=== PATIENT | male | born 1975 | race Caucasian/White ===

== ENCOUNTER 2019-05-07 17:22 | Inpatient (IN) | payer OTHER ==
[2019-05-07] MEDS ORDERED: MULTIVITAMINS, THERA 1 EACH TAB PO STA (18:13)
[2019-05-07] MEDS ORDERED: SODIUM CHLORIDE 0.9% 1,000 ML IV STA (18:13)
[2019-05-07] MEDS ORDERED: FOLIC ACID 1 MG TAB PO STA (18:13)
[2019-05-07] MEDS ORDERED: THIAMINE 100 MG/ML 2 ML VIAL IM STA (18:13)
[2019-05-07] MEDS ORDERED: LORazepam 2 MG/ML INJ IV PRN ×2 (18:13)
[2019-05-07] MEDS ORDERED: ASPIRIN 81 MG PO STA (18:14)
[2019-05-07 19:05] LABS: Anisocytosis Slight; Basophils # (A) 0.1 k/uL (0-0.2); Basophils % (A) 1 %; Eosinophils # (A) 0.2 k/uL (0-0.7); Eosinophils % (A) 3 %; HCT 38.9 % (39.0-53.0); HGB 13.3 gm/dL (13.0-17.5); Lymphocytes % (A) 14 %; MCH 32.1 pg (25.0-35.0); MCHC 34.1 g/dL (31.0-37.0); Mean Platelet Volume 7.2; Monocytes # (A) 0.5 k/uL (0-1.0); Monocytes % (A) 7 %; Neutrophils % (A) 73 %; Platelet Count 187 k/uL (150-450); RBC 4.14 m/uL (4.30-5.90); RDW 16.1 % (11.5-15.5); WBC 6.9 k/uL (3.8-10.6)
[2019-05-07 19:15] LABS: ALT 46 U/L (21-72); AST 74 U/L (17-59); African American GFR (CKD) >90 (>60 ml/min/1.73 sqM); Albumin 4.1 g/dL (3.5-5.0); Blood Urea Nitrogen 7 mg/dL (9-20); Glucose 110 mg/dL (74-99); Potassium 3.8 mmol/L (3.5-5.1); Total Protein 6.4 g/dL (6.3-8.2)
[2019-05-07 19:18] LABS: INR 0.9 (<1.2); Partial Thromboplastin Time 24.9 sec (22.0-30.0); Prothrombin Time 9.7 sec (9.0-12.0)
[2019-05-07 19:27] LABS: Alkaline Phosphatase 60 U/L (38-126); Anion Gap 13 mmol/L; Calcium 8.3 mg/dL (8.4-10.2); Carbon Dioxide 22 mmol/L (22-30); Chloride 104 mmol/L (98-107); Magnesium 1.8 mg/dL (1.6-2.3); Sodium 139 mmol/L (137-145); Total Bilirubin 0.4 mg/dL (0.2-1.3)
[2019-05-07 19:35] LABS: Alcohol 175 mg/dL
--- NOTE | 2019-05-07 20:25 | ED ---
Alcohol HPI - General Chief Complaint: Alcohol Stated Complaint: alcohol detox Time Seen by Provider: 05/07/19 17:30 Source: patient Mode of arrival: EMS Limitations: no limitations - History of Present Illness Initial Comments: The patient is a 43-year-old male with past history of alcohol abuse who presents to the emergency room and from [place]. The patient states he went in there today to detox from alcohol. He has been through detox multiple times. States he has suffered from withdrawal seizures before as well as DTs. The patient normally drinks a 15 pack of beer per day as well as a pint of alcohol. States that his last drink was earlier today. He then stated that he made the decision to going to [place]. While he was there is alcohol was noted to be in the 130s per the patient. He does have a breathalyzer at home and states he is normally in the 300s. He felt tremulous and started complaining of chest pain. Because of this they did transfer him to the hospital for further evaluation the patient states he has had chest pain before in the past. He is supposed to be having a stress test however states it's been difficult as he cannot remain sober. He denies any associated shortness of breath. Does admit to diaphoresis and nausea. No vomiting. Denies a history of cardiac disease. He has never had a stress test or cath before. Patient does report a history of smoking and high blood pressure. He denies ripping or tearing sensation to his back. No history of DVTs or PEs. No calf pain or swelling. No pedal edema. Denies use of any illicit drugs. No suicidal or homicidal ideations. There are no other alleviating, precipitating or modifying factors - Related Data Home Medications Medication Instructions Recorded Confirmed Acetaminophen [Tylenol] 1,000 mg PO DAILY 05/07/19 05/07/19 Labetalol [Trandate] 100 mg PO BID 05/07/19 05/07/19 Lisinopril [Prinivil] 10 mg PO DAILY 05/07/19 05/07/19 QUEtiapine FUMARATE [SEROquel] 300 mg PO DAILY 05/07/19 05/07/19 Simvastatin 10 mg PO DAILY 05/07/19 05/07/19 Previous Rx's Medication Instructions Recorded Folic Acid 1 mg PO DAILY #30 tablet 05/09/19 Multivitamins, Thera [Multivitamin 1 tab PO DAILY #30 tablet 05/09/19 (formulary)] Thiamine [Vitamin B-1] 100 mg PO DAILY #30 tablet 05/09/19 Allergies Allergy/AdvReac Type Severity Reaction Status Date / Time No Known Allergies Allergy Verified 05/07/19 17:35 Review of Systems ROS Statement: Those systems with pertinent positive or pertinent negative responses have been documented in the HPI. ROS Other: All systems not noted in ROS Statement are negative. Past Medical History Past Medical History: Hyperlipidemia, Hypertension History of Any Multi-Drug Resistant Organisms: None Reported Additional Past Surgical History / Comment(s): Neck sx 2014 Past Psychological History: Depression Smoking Status: Current every day smoker Past Alcohol Use History: Abuse, Heavy Past Drug Use History: None Reported General Exam Limitations: no limitations General appearance: alert, appears intoxicated Head exam: Present: atraumatic, normocephalic, normal inspection Eye exam: Present: normal appearance, PERRL, EOMI. Absent: scleral icterus, conjunctival injection, periorbital swelling ENT exam: Present: normal exam, mucous membranes moist Neck exam: Present: normal inspection. Absent: tenderness, meningismus, lymphadenopathy Respiratory exam: Present: normal lung sounds bilaterally. Absent: respiratory distress, wheezes, rales, rhonchi, stridor Cardiovascular Exam: Present: regular rate, normal rhythm, normal heart sounds. Absent: systolic murmur, diastolic murmur, rubs, gallop, clicks GI/Abdominal exam: Present: soft, normal bowel sounds. Absent: distended, tenderness, guarding, rebound, rigid Extremities exam: Present: normal inspection, full ROM, normal capillary refill. Absent: tenderness, pedal edema, joint swelling, calf tenderness Back exam: Present: normal inspection Neurological exam: Present: alert, oriented X3, CN II-XII intact Psychiatric exam: Present: normal affect, normal mood Skin exam: Present: warm, intact, normal color, diaphoretic. Absent: rash Course Vital Signs 05/07/19 05/07/19 05/07/19 17:28 17:30 18:00 Temperature 98.7 F Pulse Rate 82 85 93 Respiratory 16 22 16 Rate Blood Pressure 122/80 122/80 119/76 O2 Sat by Pulse 90 L 88 L 96 Oximetry 05/07/19 05/07/19 05/07/19 18:30 19:00 19:30 Temperature Pulse Rate 69 64 Respiratory 18 17 Rate Blood Pressure 115/83 118/73 116/84 O2 Sat by Pulse 98 99 Oximetry 05/07/19 05/07/19 20:03 21:34 Temperature 98.0 F Pulse Rate 68 72 Respiratory 18 18 Rate Blood Pressure 114/70 113/68 O2 Sat by Pulse 98 98 Oximetry Medical Decision Making - Medical Decision Making Upon arrival the patient is placed into room 24. He is hooked up to continuous pulse ox and cardiac monitoring. The patient is placed on oxygen as he does desat to the high 80s when asleep. He did complete a 12-lead EKG which demonstrates no acute ST segment elevation. Peripheral IV is established. I do place the patient on CIWA protocol. He is a started on the 100 mL of fluid per hour. Laboratory studies are conducted the patient is sent for chest x-ray. First troponin is negative. The patient does have an alcohol level of 175. Because the patient's reported chest pain or did recommend admission to the hospital in order to continue to trend the patient's troponins. Patient did agree to this. As he does not have a physician I did call discuss case with Dr. Naik who did accept admission for the patient. He requested I place cardiology on consult. The patient did receive a chewable aspirin. He remained in stable condition and was transported to the floor - Lab Data Result diagrams: 05/08/19 06:45 05/08/19 06:45 Lab Results 05/07/19 05/07/19 05/07/19 Range/Units 18:53 18:53 18:53 WBC 6.9 (3.8-10.6) k/uL RBC 4.14 L (4.30-5.90) m/uL Hgb 13.3 (13.0-17.5) gm/dL Hct 38.9 L (39.0-53.0) % MCV 94.0 (80.0-100.0) fL MCH 32.1 (25.0-35.0) pg MCHC 34.1 (31.0-37.0) g/dL RDW 16.1 H (11.5-15.5) % Plt Count 187 (150-450) k/uL Neutrophils % 73 % Lymphocytes % 14 % Monocytes % 7 % Eosinophils % 3 % Basophils % 1 % Neutrophils # 5.0 (1.3-7.7) k/uL Lymphocytes # 1.0 (1.0-4.8) k/uL Monocytes # 0.5 (0-1.0) k/uL Eosinophils # 0.2 (0-0.7) k/uL Basophils # 0.1 (0-0.2) k/uL Anisocytosis Slight PT 9.7 (9.0-12.0) sec INR 0.9 (<1.2) APTT 24.9 (22.0-30.0) sec Sodium 139 (137-145) mmol/L Potassium 3.8 (3.5-5.1) mmol/L Chloride 104 (98-107) mmol/L Carbon Dioxide 22 (22-30) mmol/L Anion Gap 13 mmol/L BUN 7 L (9-20) mg/dL Creatinine 0.66 (0.66-1.25) mg/dL Est GFR (CKD-EPI)AfAm >90 (>60 ml/min/1.73 sqM) Est GFR (CKD-EPI)NonAf >90 (>60 ml/min/1.73 sqM) Glucose 110 H (74-99) mg/dL Calcium 8.3 L (8.4-10.2) mg/dL Magnesium 1.8 (1.6-2.3) mg/dL Total Bilirubin 0.4 (0.2-1.3) mg/dL AST 74 H (17-59) U/L ALT 46 (21-72) U/L Alkaline Phosphatase 60 (38-126) U/L Troponin I (0.000-0.034) ng/mL Total Protein 6.4 (6.3-8.2) g/dL Albumin 4.1 (3.5-5.0) g/dL Serum Alcohol 175 mg/dL 05/07/19 05/08/19 05/08/19 Range/Units 18:53 01:17 06:45 WBC 7.4 (3.8-10.6) k/uL RBC 4.20 L (4.30-5.90) m/uL Hgb 13.1 (13.0-17.5) gm/dL Hct 39.5 (39.0-53.0) % MCV 94.1 (80.0-100.0) fL MCH 31.3 (25.0-35.0) pg MCHC 33.3 (31.0-37.0) g/dL RDW 15.5 (11.5-15.5) % Plt Count 171 (150-450) k/uL Neutrophils % 75 % Lymphocytes % 14 % Monocytes % 5 % Eosinophils % 3 % Basophils % 1 % Neutrophils # 5.6 (1.3-7.7) k/uL Lymphocytes # 1.0 (1.0-4.8) k/uL Monocytes # 0.4 (0-1.0) k/uL Eosinophils # 0.2 (0-0.7) k/uL Basophils # 0.1 (0-0.2) k/uL Anisocytosis PT (9.0-12.0) sec INR (<1.2) APTT (22.0-30.0) sec Sodium (137-145) mmol/L Potassium (3.5-5.1) mmol/L Chloride (98-107) mmol/L Carbon Dioxide (22-30) mmol/L Anion Gap mmol/L BUN (9-20) mg/dL Creatinine (0.66-1.25) mg/dL Est GFR (CKD-EPI)AfAm (>60 ml/min/1.73 sqM) Est GFR (CKD-EPI)NonAf (>60 ml/min/1.73 sqM) Glucose (74-99) mg/dL Calcium (8.4-10.2) mg/dL Magnesium (1.6-2.3) mg/dL Total Bilirubin (0.2-1.3) mg/dL AST (17-59) U/L ALT (21-72) U/L Alkaline Phosphatase (38-126) U/L Troponin I <0.012 <0.012 (0.000-0.034) ng/mL Total Protein (6.3-8.2) g/dL Albumin (3.5-5.0) g/dL Serum Alcohol mg/dL 05/08/19 05/08/19 Range/Units 06:45 06:45 WBC (3.8-10.6) k/uL RBC (4.30-5.90) m/uL Hgb (13.0-17.5) gm/dL Hct (39.0-53.0) % MCV (80.0-100.0) fL MCH (25.0-35.0) pg MCHC (31.0-37.0) g/dL RDW (11.5-15.5) % Plt Count (150-450) k/uL Neutrophils % % Lymphocytes % % Monocytes % % Eosinophils % % Basophils % % Neutrophils # (1.3-7.7) k/uL Lymphocytes # (1.0-4.8) k/uL Monocytes # (0-1.0) k/uL Eosinophils # (0-0.7) k/uL Basophils # (0-0.2) k/uL Anisocytosis PT (9.0-12.0) sec INR (<1.2) APTT (22.0-30.0) sec Sodium 139 (137-145) mmol/L Potassium 4.3 (3.5-5.1) mmol/L Chloride 104 (98-107) mmol/L Carbon Dioxide 25 (22-30) mmol/L Anion Gap 10 mmol/L BUN 9 (9-20) mg/dL Creatinine 0.77 (0.66-1.25) mg/dL Est GFR (CKD-EPI)AfAm >90 (>60 ml/min/1.73 sqM) Est GFR (CKD-EPI)NonAf >90 (>60 ml/min/1.73 sqM) Glucose 73 L (74-99) mg/dL Calcium 9.0 (8.4-10.2) mg/dL Magnesium (1.6-2.3) mg/dL Total Bilirubin (0.2-1.3) mg/dL AST (17-59) U/L ALT (21-72) U/L Alkaline Phosphatase (38-126) U/L Troponin I <0.012 (0.000-0.034) ng/mL Total Protein (6.3-8.2) g/dL Albumin (3.5-5.0) g/dL Serum Alcohol mg/dL - EKG Data EKG Comments: EKG demonstrates a normal sinus rhythm with a ventricular rate of 74. MN interval 176. QRS 80. QTC 437. No acute ST segment elevations. Disposition Clinical Impression: Chest pain, Alcohol intoxication Disposition: ADMITTED IP TO THIS HOSP Condition: Stable Is patient prescribed a controlled substance at d/c from ED?: No Decision to Admit Reason: Admit from EC Decision Date: 05/07/19 Decision Time: 20:55
--- NOTE | 2019-05-07 20:42 | XR ---
EXAMINATION: XR chest 3V DATE AND TIME: 05/07/2019 7:29 PM CLINICAL INDICATION: PHH; Chest Pain TECHNIQUE: 2 frontal radiographs and one lateral radiograph COMPARISON: None FINDINGS: There is evidence of pectus excavatum, congenital variant anatomy. The lungs are clear. The pleural spaces are negative. The cardiac silhouette is not enlarged. The remainder of the mediastinal silhouette is unremarkable. The skeletal structures and soft tissues are negative for acute findings. IMPRESSION: NO ACUTE PROCESS.
[2019-05-07] MEDS ORDERED: NALOXONE 0.4 MG/ML 1 ML VIAL IV PRN (20:56)
[2019-05-07] MEDS: LACTATED RINGERS 1,000 ML IV SCH (21:42)
[2019-05-08] MEDS: LORazepam 2 MG/ML INJ IV PRN ×8 (01:11→23:46)
[2019-05-08] MEDS: LACTATED RINGERS 1,000 ML IV SCH ×2 (06:33→17:45)
[2019-05-08 06:55] LABS: Basophils # (A) 0.1 k/uL (0-0.2); Basophils % (A) 1 %; Eosinophils # (A) 0.2 k/uL (0-0.7); Eosinophils % (A) 3 %; HCT 39.5 % (39.0-53.0); HGB 13.1 gm/dL (13.0-17.5); Lymphocytes % (A) 14 %; MCH 31.3 pg (25.0-35.0); MCHC 33.3 g/dL (31.0-37.0); MCV 94.1 fL (80.0-100.0); Mean Platelet Volume 8.5; Monocytes # (A) 0.4 k/uL (0-1.0); Monocytes % (A) 5 %; Neutrophils # (A) 5.6 k/uL (1.3-7.7); Neutrophils % (A) 75 %; Platelet Count 171 k/uL (150-450); RDW 15.5 % (11.5-15.5); WBC 7.4 k/uL (3.8-10.6)
[2019-05-08 07:05] LABS: African American GFR (CKD) >90 (>60 ml/min/1.73 sqM); Anion Gap 10 mmol/L; Blood Urea Nitrogen 9 mg/dL (9-20); Carbon Dioxide 25 mmol/L (22-30); Chloride 104 mmol/L (98-107); Glucose 73 mg/dL (74-99); Potassium 4.3 mmol/L (3.5-5.1); Sodium 139 mmol/L (137-145)
--- NOTE | 2019-05-08 07:29 | HP ---
HISTORY AND PHYSICAL A 43-year-old with alcohol abuse, came in from [place] for detox from alcohol. He has been detoxed multiple times. He drinks a 15 pack of beer per day and alcohol. History of today, heart rate in the 130s. He is brought here for alcohol withdrawal. He apparently had some chest pain and recent abnormal stress test. Cardiology has been consulted. History of smoking, high blood pressure. . No history of DVTs. No calf pain. Denies illicit drugs. No suicidal ideation. He denies ripping or tearing to his back. MEDICATIONS: Include Trandate 100 b.i.d., Prinivil 10 mg daily, Seroquel 300 daily, simvastatin 10 mg daily, Tylenol 1000 mg daily. ALLERGIES: No known drug allergies. PAST MEDICAL HISTORY: Hypertension, dyslipidemia, depression, current everyday smoker, heavy alcohol abuse. Temp 97.8, pulse 80s to 90s, respiratory 16-20. CARDIOVASCULAR: S1, S2. Tachycardiac, thin, cachectic. LUNGS: Transmitted upper airway sounds. HEMATOLOGY: Negative Homans. GI: Soft, nontender. White count 6.9, hemoglobin 13.3, sodium, potassium normal. Serum creatinine normal. alcohol 125. ASSESSMENT: EKG sinus rhythm, atypical chest pain, alcohol withdrawal, CIWA protocol is intact, replace electrolytes accordingly. Chest x-ray is negative. Continue with detox. Cardiology consult for chest pain trauma. Possible Psych consult for alcohol withdrawal medications. MMODL / IJN: [id number] /
[2019-05-08] MEDS: LISINOPRIL 10 MG TAB PO SCH (09:03)
[2019-05-08] MEDS: QUEtiapine 100 MG TAB PO SCH (09:04)
[2019-05-08] MEDS: ACETAMINOPHEN TAB 500 MG TAB PO SCH (09:04)
[2019-05-08] MEDS: LABETALOL 100 MG TAB PO SCH ×2 (09:04→20:52)
[2019-05-08] MEDS: ATORVASTATIN 10 MG TAB PO SCH (09:04)
[2019-05-08 10:01] VITALS: BMI 22.6
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
--- NOTE | 2019-05-08 12:15 | ECHOF ---
Referral Reason:Chest pain and cardiomyopathy MEASUREMENTS -------- HEIGHT: 170.2 cm WEIGHT: 65.3 kg BP: 148/86 RVIDd: 2.9 cm (< 3.3) IVSd: 1.0 cm (0.6 - 1.1) LVIDd: 4.2 cm (3.9 - 5.3) LVPWd: 0.9 cm (0.6 - 1.1) IVSs: 1.4 cm LVIDs: 2.6 cm LVPWs: 1.5 cm LA Diam: 2.3 cm (2.7 - 3.8) Ao Diam: 3.1 cm (2.0 - 3.7) AV Cusp: 1.7 cm (1.5 - 2.6) MV EXCURSION: 13.818 mm (> 18.000) MV EF SLOPE: 55 mm/s (70 - 150) EPSS: 0.1 cm MV E Espinoza: 0.92 m/s MV DecT: 217 ms MV A Espinoza: 0.66 m/s MV E/A Ratio: 1.39 FINDINGS -------- Sinus rhythm. This was a technically good study. The left ventricular size is normal. Left ventricular wall thickness is normal. Overall left vent ricular systolic function is normal with, an EF between 55 - 60 %. The diastolic filling pattern is normal for the age of the patient 10.51. The right ventricle is normal in size. The left atrial size is normal. The right atrial size is normal. Interatrial and interventricular septum intact. The aortic valve is trileaflet, and appears structurally normal. No aortic stenosis or regurgitation. The mitral valve is normal. No mitral regurgitation. The tricuspid valve appears structurally normal. Trace tricuspid regurgitation present. There is no pulmonic regurgitation present. The aortic root size is normal. Normal inferior vena cava with normal inspiratory collapse consistent with estimated right atrial pre ssure of 5 mmHg. There is no pericardial effusion. CONCLUSIONS -------- 1. Sinus rhythm. 2. This was a technically good study. 3. The left ventricular size is normal. 4. Left ventricular wall thickness is normal. 5. Overall left ventricular systolic function is normal with, an EF between 55 - 60 %. 6. The diastolic filling pattern is normal for the age of the patient 10.51 7. The left atrial size is normal. 8. The aortic valve is trileaflet, and appears structurally normal. No aortic stenosis or regurgitati on. 9. The mitral valve is normal. 10. The tricuspid valve appears structurally normal. 11. Trace tricuspid regurgitation present. 12. There is no pulmonic regurgitation present. 13. The aortic root size is normal. 14. Normal inferior vena cava with normal inspiratory collapse consistent with estimated right atrial pressure of 5 mmHg. 15. There is no pericardial effusion. BUSINESS INTEGRATION MANAGER: Kayiln Purcell RDCS
[2019-05-09] MEDS: LORazepam 2 MG/ML INJ IV PRN (05:05)
[2019-05-09 09:16] VITALS: BP 142/96; PULSE 90; RESP 18; TEMP 97.7
[2019-05-09] MEDS: ACETAMINOPHEN TAB 500 MG TAB PO SCH (09:20)
[2019-05-09] MEDS: QUEtiapine 100 MG TAB PO SCH (09:20)
[2019-05-09] MEDS: LABETALOL 100 MG TAB PO SCH (09:20)
[2019-05-09] MEDS: LISINOPRIL 10 MG TAB PO SCH (09:21)
[2019-05-09] MEDS: ATORVASTATIN 10 MG TAB PO SCH (09:21)
--- NOTE | 2019-05-09 11:10 | P.PN ---
Subjective Progress Note Date: 05/09/19 This patient is admitted with alcohol intoxication. She was complaining of atypical chest pains. His EKG and cardiac enzymes are negative. Echo cardiogram showed normal LV function. No further cardiac workup at this time. Will follow when necessary Objective - Vital Signs Vital signs: Vital Signs Temp 97.7 F 05/09/19 08:00 Pulse 90 05/09/19 08:00 Resp 18 05/09/19 08:00 BP 142/96 05/09/19 08:00 Pulse Ox 96 05/09/19 08:00 Intake & Output 05/08/19 05/09/19 05/09/19 18:59 06:59 18:59 Intake Total 440 Output Total 650 450 Balance -210 -450 Weight 65.7 kg 65.1 kg Intake: Oral 440 Output: Urine 650 450 Other: Voiding Method Toilet Toilet Toilet Urinal Urinal Urinal # Voids 2 1 - Exam GENERAL EXAM: Patient is alert and oriented HEENT: Normocephalic. Normal reaction of pupils, equal size, normal range of extraocular motion. No erythema or exudates in the throat. NECK: No masses, no nuchal rigidity. CHEST: No chest wall deformity. LUNGS: Equal air entry with no crackles or wheeze. HEART: S1 and S2 normal with no audible mumurs or gallops. Regular rhythm, femorals equal on both sides.. ABDOMEN: No hepatosplenomegaly, normal bowel sounds, no guarding or rigidity. SKIN: No rashes CENTRAL NERVOUS SYSTEM: No focal deficits. EXTREMITIES: No cyanosis, clubbing or edema. - Labs CBC & Chem 7: 05/08/19 06:45 05/08/19 06:45 Assessment and Plan (1) Chest pain Current Visit: Yes Status: Acute Code(s): R07.9 - CHEST PAIN, UNSPECIFIED SNOMED Code(s): 31806902 (2) Essential hypertension Current Visit: Yes Status: Acute Code(s): I10 - ESSENTIAL (PRIMARY) HYPERTENSION SNOMED Code(s): 70027596 (3) Hypercholesterolemia Current Visit: Yes Status: Acute Code(s): E78.00 - PURE HYPERCHOLESTEROLEMIA, UNSPECIFIED SNOMED Code(s): 50858351 (4) Alcohol intoxication Current Visit: Yes Status: Acute Code(s): F10.929 - ALCOHOL USE, UNSPECIFIED WITH INTOXICATION, UNSPECIFIED SNOMED Code(s): 31538690 Plan: Echo Cardigan showed normal LV function. His chest pains are atypical. We'll follow as needed
[2019-05-09] MEDS ORDERED: NICOTINE 14MG/24HR PATCH TRANSDERM STA (14:33)
--- NOTE | 2019-05-09 21:32 | P.DS ---
Providers Date of admission: 05/09/19 09:05 Expected date of discharge: 05/09/19 Attending physician: William Naik Consults: 05/07/19 20:57 Consult Physician Urgent Consulting Provider: [facility] Consult Reason/Comments: acute chest pain Do you want consulting provider notified?: Yes Primary care physician: Physician Nonstaff Hospital Course: -Alcohol intoxication, Dts -Chest pain, acute coronary syndrome ruled out as per cardiology -Essential hypertension -Hypercholesterolemia -Ongoing nicotine dependence -Depression Hospital course: This a 43-year-old gentleman admitted with alcohol intoxication, chest pain and multiple other medical issues. Evaluated by cardiology, EKG and cardiac enzymes negative. Normal LV function as per echo. No further cardiac recommendations at this time as per cardiology. Maintained on IV fluid hydration, CiWA protocol. Significant clinical improvement. Cleared by cardiology for discharge. Patient is being discharged back to [facility] in a stable condition with guarded prognosis. EXAM: Patient is alert and oriented, no acute distress LUNGS: Equal air entry with no crackles or wheeze. HEART: S1 and S2 normal with no audible mumurs or gallops. Regular rhythm ABDOMEN: No hepatosplenomegaly, normal bowel sounds, no guarding or rigidity. NERVOUS SYSTEM: No focal deficits. The impression and plan of care has been dictated as directed. : I performed a history and examination of this patient, discussed the same with the dictator. I agree with the dictator's note ,documented as a scribe. Any additional findings or plans will be noted. Patient Condition at Discharge: Stable Plan - Discharge Summary Discharge Rx Participant: No New Discharge Prescriptions: New Folic Acid 1 mg PO DAILY #30 tablet Multivitamins, Thera [Multivitamin (formulary)] 1 tab PO DAILY #30 tablet Thiamine [Vitamin B-1] 100 mg PO DAILY #30 tablet Continue Simvastatin 10 mg PO DAILY QUEtiapine FUMARATE [SEROquel] 300 mg PO DAILY Lisinopril [Prinivil] 10 mg PO DAILY Labetalol [Trandate] 100 mg PO BID Acetaminophen [Tylenol] 1,000 mg PO DAILY Discharge Medication List Acetaminophen [Tylenol] 1,000 mg PO DAILY 05/07/19 [History] Labetalol [Trandate] 100 mg PO BID 05/07/19 [History] Lisinopril [Prinivil] 10 mg PO DAILY 05/07/19 [History] QUEtiapine FUMARATE [SEROquel] 300 mg PO DAILY 05/07/19 [History] Simvastatin 10 mg PO DAILY 05/07/19 [History] Folic Acid 1 mg PO DAILY #30 tablet 05/09/19 [Rx] Multivitamins, Thera [Multivitamin (formulary)] 1 tab PO DAILY #30 tablet 05/09/19 [Rx] Thiamine [Vitamin B-1] 100 mg PO DAILY #30 tablet 05/09/19 [Rx] Follow up Appointment(s)/Referral(s): Nonstaff,Physician [Primary Care Provider] - 05/15/19 11:30 am (Dr. Norton - please follow up with your primary provider and ask for a referral for a compliance representative that will be covered under your insurance. ) Rubén Stafford MD [STAFF PHYSICIAN] - 1 Week ([facility] does not accept your insurance. Please follow up with your primary provider next week for a cardiology referral in your coverage. ) Patient Instructions/Handouts: Chest Pain (DC), How to Stop Smoking (DC), Heart Healthy Diet (DC) Activity/Diet/Wound Care/Special Instructions: Return to [place] Discharge Disposition: OTHER INSTITUTION NOT DEFINED
== END 2019-05-09 16:03 | DRG 897 ==
LOC: EC 17:22 → 3SCARD 20:56 → OBSVTOIN 05-09 09:05
PROVIDERS: ADMIT Family Medicine; ATTEND Family Medicine
DX: F10.229 Alcohol dependence with intoxication, unspecified (principal); F10.231 Alcohol dependence with withdrawal delirium; Y90.6 Blood alcohol level of 120-199 mg/100 ml; E78.00 Pure hypercholesterolemia, unspecified; E78.5 Hyperlipidemia, unspecified; F17.210 Nicotine dependence, cigarettes, uncomplicated; F32.9 Major depressive disorder, single episode, unspecified; I10 Essential (primary) hypertension; S40.022A Contusion of left upper arm, initial encounter; Y35.93XA Legal intervention, means unspecified, suspect injured, initial encounter; M54.2 Cervicalgia; Z79.899 Other long term (current) drug therapy; R07.9 Chest pain, unspecified
CPT/HCPCS: 36415; 71046; 80048; 80053; 80320; 83735; 84484; 85025; 85610; 85730; 93005; 93306; 94760; 96360; 96361; 96372; 99285